=== PATIENT | female | born 1990 ===

== ENCOUNTER 2017-06-07 22:27 | Emergency (ER) | payer BC, OTHER ==
[2017-06-07 22:35] VITALS: RESP 16; TEMP 98.2; O2SAT 100
--- NOTE | 2017-06-07 23:30 | ED PDOC ---
HPI: Female Pain Time Seen by Provider: 06/07/17 23:14 Chief Complaint (Nursing): Female Genitourinary Chief Complaint (Provider): 6 weeks : vaginal bleeding History Per: Patient History/Exam Limitations: no limitations Onset/Duration Of Symptoms: Hrs Current Symptoms Are (Timing): Still Present Quality Of Discomfort: Cramping Additional History Per: Patient Additional Complaint(s): 27 y/o female, approximately 6 weeks gestation, presents with vaginal bleeding x 2 hours. Associated pelvic cramping. Denies fever, nausea/vomiting, chest pain, shortness of breath, changes in bowel movements, urinary symptoms. Abnormal Vaginal Bleeding: Yes : 2 Para: 1 Miscarriage: 0 Past Medical History Reviewed: Historical Data, Nursing Documentation, Vital Signs Vital Signs: Last Vital Signs Temp 98.2 F 06/07/17 22:33 Pulse 84 06/07/17 22:33 Resp 16 06/07/17 22:33 BP 132/69 06/07/17 22:33 Pulse Ox 100 06/07/17 22:33 - Medical History PMH: Hiatal Hernia, Migraine Denies: Chronic Kidney Disease - Surgical History Surgical History: Tonsillectomy, - Family History Family History: States: Unknown Family Hx - Home Medications Home Medications: Ambulatory Orders Medication Instructions Recorded Albuterol Sulfate [Proair Hfa] 2 puff IH Q6H PRN 12/08/15 - Allergies Allergies/Adverse Reactions: Allergies Allergy/AdvReac Type Severity Reaction Status Date / Time No Known Allergies Allergy Verified 06/07/17 22:32 Review of Systems ROS Statement: Except As Marked, All Systems Reviewed And Found Negative Genitourinary Female: Positive for: Vaginal Bleeding, Pelvic Pain Physical Exam - Reviewed Nursing Documentation Reviewed: Yes Vital Signs Reviewed: Yes - Physical Exam Appears: Positive for: Well, Non-toxic, No Acute Distress Head Exam: Positive for: ATRAUMATIC, NORMAL INSPECTION, NORMOCEPHALIC Skin: Positive for: Normal Color Eye Exam: Positive for: Normal appearance ENT: Positive for: Normal ENT Inspection Cardiovascular/Chest: Positive for: Regular Rate, Rhythm Respiratory: Positive for: Normal Breath Sounds Gastrointestinal/Abdominal: Positive for: Bowel Sounds, Soft, Tenderness ( suprapubic, LLQ) Pelvic Exam: Positive for: External Exam Normal, No Cerv. 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 Negative for: Active Bleeding Back: Positive for: Normal Inspection Extremity: Positive for: Normal ROM Neurologic/Psych: Positive for: Alert, Oriented - Laboratory Results Result Diagrams: 06/07/17 23:53 06/07/17 23:53 - ECG O2 Sat by Pulse Oximetry: 100 - Progress ED Course And Treament: labs, urine, OB TV u/s EXAM: US First Trimester, Transabdominal CLINICAL HISTORY: 27 years old, female; Signs and symptoms; Lmp or gestational age (in weeks): Lmp 04/20/2017; Other: Bleeding in preg; ; Additional info: 6 weeks , vaginal bleeding TECHNIQUE: Real-time transabdominal obstetrical ultrasound of the maternal pelvis and a first trimester with image documentation. COMPARISON: No relevant prior studies available. FINDINGS: Gestation: Single live intrauterine gestation. heart rate of 153 beats per minute. Emmett-rump length of 0.9 cm, correlating with gestational age of 6 weeks 6 days. Uterus/cervix: Several uterine masses, largest measuring 5.0 x 4.8 by 4.8 cm. No subchorionic hemorrhage. No cervical dilatation or effacement. Ovaries: Not visualized. No adnexal masses. Free fluid: No significant free fluid. IMPRESSION: 1. Single live intrauterine gestation. 2. Probable fibroid uterus. EXAM: US , Transvaginal CLINICAL HISTORY: 27 years old, female; Signs and symptoms; Lmp or gestational age (in weeks): Lmp 04/20/2017; Other: Bleeding in preg; ; Additional info: 6 weeks , vaginal bleeding TECHNIQUE: Real-time transvaginal obstetrical ultrasound of the maternal pelvis and a first trimester with image documentation. Transvaginal imaging was used for better evaluation of the fetus and adnexa. COMPARISON: No relevant prior studies available. FINDINGS: Gestation: Single live intrauterine gestation. heart rate of 153 beats per minute. Emmett-rump length of 0.9 cm, correlating with gestational age of 6 weeks 6 days. Uterus/cervix: Several uterine masses, largest measuring 5.0 x 4.8 by 4.8 cm. No subchorionic hemorrhage. No cervical dilatation or effacement. Ovaries: Not visualized. No adnexal masses. Free fluid: No significant free fluid. IMPRESSION: 1. Single live intrauterine gestation. 2. Probable fibroid uterus. Case discussed with Dr. 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 Patient educated on findings. Return precautions given. Disposition - Clinical Impression Clinical Impression: Uterine fibroid, Vaginal bleeding in - Patient ED Disposition Is Patient to be Admitted: No Counseled Patient/Family Regarding: Studies Performed, Diagnosis, Need For Followup - Disposition Disposition: Routine/Home Disposition Time: 02:19 Condition: STABLE Instructions: Uterine Fibroids (ED), Threatened Miscarriage (ED)
[2017-06-08 00:11] LABS: BASO % 0.3 % (0.0-2.0); EOS # 0.1 K/uL (0.0-0.7); EOS % 1.1 % (0.0-4.0); HEMATOCRIT 36.5 % (34.0-47.0); LYMPH # 2.1 K/uL (1.0-4.3); LYMPH % 23.1 % (20.0-40.0); MEAN CELL VOLUME 78.7 fl (81.0-99.0); MEAN CORPUSCULAR HEMOGLOBIN 24.8 pg (27.0-31.0); MEAN CORPUSCULAR HGB CONC 31.6 g/dL (33.0-37.0); MEAN PLATELET VOLUME 8.6 fl (7.2-11.7); MONO # 0.8 K/uL (0.0-0.8); MONO % 8.9 % (0.0-10.0); NEUT # 6.2 K/uL (1.8-7.0); NEUT % 66.6 % (50.0-75.0); RED CELL DISTRIBUTION WIDTH 15.8 % (11.5-14.5); WHITE BLOOD COUNT 9.3 K/uL (4.8-10.8)
[2017-06-08 00:13] LABS: ALB/GLOB RATIO 1.2 (1.0-2.1); ALKALINE PHOSPHATASE 68 U/L (38-126); ALT/SGPT 36 U/L (9-52); AST/SGOT 29 U/L (14-36); BILIRUBIN,TOTAL 0.3 mg/dl (0.2-1.3); BLOOD UREA NITROGEN 9 mg/dl (7-17); CALCIUM 8.8 mg/dL (8.4-10.2); CARBON DIOXIDE 25 mmol/L (22-30); CHLORIDE 103 mmol/L (98-107); GFR AFRICAN-AMERICAN > 60; GLUCOSE,RANDOM 89 mg/dL (65-105); SODIUM 138 mmol/l (132-148); TOTAL PROTEIN 7.5 G/DL (6.3-8.2)
[2017-06-08 03:13] VITALS: BP 125/78; PULSE 83
--- NOTE | 2017-06-08 09:27 | US ---
PROCEDURE: OB Pelvic Ultrasound HISTORY: 6 weeks , vaginal bleeding TECHNIQUE: Grayscale, color Doppler and spectral evaluation of the pelvis performed transabdominally and transvaginally. COMPARISON: None available. FINDINGS: UTERUS: Gestational sac: Single intrauterine gestation. Mean sac diameter measures 1.9 centimeter compatible with an estimated gestational age of 6 weeks, 2 days. [place]-rump length: 0.9 centimeter compatible with an estimated gestational age of 6 weeks, 6 days. Yolk sac: 0.6 centimeter. Heart rate: 153 bpm. age (Ultrasound estimated): 6 weeks, 4 days Anastasiia-gestational hemorrhage: None. Date of delivery (Ultrasound estimated) : 01/28/2018 Uterus measures 12.0 x 8.8 x 10.5 cm. Multiple fibroids, largest is in the fundus and measures 4.9 x 4.7 x 4.8 centimeter. CERVIX: Long and closed. No cervical abnormality seen. RIGHT OVARY: Not visualized LEFT OVARY: Not visualized FREE FLUID: None. OTHER FINDINGS: None. IMPRESSION: Single viable intrauterine gestation with estimated gestational age of 6 weeks, 4 days. heart rate 153 beats per minute. Fibroid uterus.
== END 2017-06-08 02:25 | disposition home or self-care (01) ==
LOC: H.ER 22:27
DX: O20.9 Hemorrhage in early pregnancy, unspecified (principal); Z3A.01 Less than 8 weeks gestation of pregnancy; D25.9 Leiomyoma of uterus, unspecified; O34.11 Maternal care for benign tumor of corpus uteri, first trimester

== ENCOUNTER 2017-08-07 19:15 | Emergency (ER) | payer BC, MEDICAID ==
[2017-08-07 19:39] VITALS: BP 110/74; PULSE 87; RESP 18; TEMP 98.2; O2SAT 98
[2017-08-07 21:17] LABS: BASO # 0.1 K/uL (0.0-0.2); BASO % 0.9 % (0.0-2.0); EOS # 0.1 K/uL (0.0-0.7); EOS % 1.3 % (0.0-4.0); HEMOGLOBIN 11.6 g/dL (12.0-16.0); LYMPH # 1.8 K/uL (1.0-4.3); LYMPH % 22.9 % (20.0-40.0); MEAN CELL VOLUME 79.9 fl (81.0-99.0); MEAN CORPUSCULAR HEMOGLOBIN 26.5 pg (27.0-31.0); MEAN CORPUSCULAR HGB CONC 33.2 g/dL (33.0-37.0); MEAN PLATELET VOLUME 8.8 fl (7.2-11.7); MONO # 0.7 K/uL (0.0-0.8); MONO % 9.5 % (0.0-10.0); NEUT # 5.1 K/uL (1.8-7.0); NEUT % 65.4 % (50.0-75.0); RBC 4.36 Mil/uL (3.80-5.20); RED CELL DISTRIBUTION WIDTH 16.5 % (11.5-14.5); WHITE BLOOD COUNT 7.8 K/uL (4.8-10.8)
[2017-08-07 21:28] LABS: SQUAMOUS EPITHIAL < 1 /hpf (0-5); URINE BACTERIA RARE (<OCC); URINE BILIRUBIN NEGATIVE (NEGATIVE); URINE BLOOD SMALL (NEGATIVE); URINE CLARITY CLEAR (Clear); URINE COLOR COLORLESS (YELLOW); URINE GLUCOSE (UA) NEG (Normal); URINE LEUKOCYTE ESTERASE NEG Leu/uL (Negative); URINE NITRATE NEGATIVE (NEGATIVE); URINE PROTEIN NEGATIVE (NEGATIVE); URINE UROBILINOGEN 0.2-1.0 mg/dL (0.2-1.0)
[2017-08-07 21:38] LABS: ALB/GLOB RATIO 1.1 (1.0-2.1); ALBUMIN 3.8 g/dL (3.5-5.0); ALT/SGPT 94 U/L (9-52); AST/SGOT 56 U/L (14-36); BLOOD UREA NITROGEN 5 mg/dl (7-17); GFR AFRICAN-AMERICAN > 60; GFR NON-AFRICAN AMERICAN > 60
[2017-08-07 21:51] LABS: PARTIAL THROMBOPLASTIN TIME 25.8 Seconds (25.6-37.1); PROTHROMBIN TIME 11.5 Seconds (9.8-13.1)
--- NOTE | 2017-08-07 22:18 | US ---
EXAM: US After First Trimester, Transabdominal CLINICAL HISTORY: 27 years old, female; Signs and symptoms; Lmp or gestational age (in weeks): 04/25/17; Antepartum complications; Hemorrhage; ; Additional info: Preg vag bld TECHNIQUE: Real-time transabdominal obstetrical ultrasound of the maternal pelvis and a second or third trimester with image documentation. COMPARISON: No relevant prior studies available. FINDINGS: Fetus: Single live intrauterine gestation. Heart rate: heart rate of 149 beats per minute. Presentation: Breech. Placenta: Posterior fundal. No placenta previa or abruption. Amniotic fluid: Normal. Anatomy: No anomaly is appreciated. BIOMETRICS Gestational age by US: Estimated gestational age of 16 weeks 1 day by measurements. EFW: Estimated weight of 147 g. BPD: 3.4 cm, correlating with 16 weeks 3 days. HC: 11.8 cm, correlating with 15 weeks 6 days. AC: 9.6 cm, correlating with 15 weeks 5 days. FL: 2.2 cm, correlating with 16 weeks 5 days. MATERNAL: Uterus: Two uterine masses, larger measuring 4.8 x 4.6 x 5.0 cm. Cervix: No cervical dilatation or effacement. Adnexa: Ovaries not visualized. No adnexal masses. Free fluid: No significant free fluid. IMPRESSION: 1. Single live intrauterine gestation. 2. Probable fibroid uterus.
--- NOTE | 2017-08-07 23:53 | ED PDOC ---
HPI: Female Pain Time Seen by Provider: 08/07/17 20:28 Chief Complaint (Nursing): Female Genitourinary Chief Complaint (Provider): Female Genitourinary History Per: Patient History/Exam Limitations: no limitations Onset/Duration Of Symptoms: Hrs (x4) Current Symptoms Are (Timing): Still Present Associated Symptoms: denies: Fever, Nausea, Vomiting, Diarrhea Additional Complaint(s): 27 year old female presents to ED with complaints of acute vaginal bleeding x4 hours and is at 15 weeks. Patient's is high-risk due to DVT and possible autoimmune disease and she is currently on Lovenox injections and ASA. Patient notes small clots and pelvic cramps that she describes as similar to menstrual cramps, but stronger. (-) cough, SOB, nausea, vomiting, diarrhea, or fever. Notes onset of bleeding occurred while at rest. Patient states she initially called Dr. Duncan, who advised ED evaluation. PCP: Abnormal Vaginal Bleeding: Yes : 3 Para: 2 Past Medical History Reviewed: Historical Data, Nursing Documentation, Vital Signs Vital Signs: Last Vital Signs Temp 98.2 F 08/07/17 19:36 Pulse 87 08/07/17 19:36 Resp 18 08/07/17 19:36 BP 110/74 08/07/17 19:36 Pulse Ox 98 08/07/17 19:36 - Medical History PMH: Deep Vein Thrombosis, Hiatal Hernia, Migraine Denies: Chronic Kidney Disease - Surgical History Surgical History: Tonsillectomy, - Family History Family History: States: Unknown Family Hx - Living Arrangements Living Arrangements: With Family - Social History Alcohol: None Drugs: Denies - Home Medications Home Medications: Ambulatory Orders Medication Instructions Recorded Albuterol Sulfate [Proair Hfa] 2 puff IH Q6H PRN 12/08/15 - Allergies Allergies/Adverse Reactions: Allergies Allergy/AdvReac Type Severity Reaction Status Date / Time No Known Allergies Allergy Verified 06/07/17 22:32 Review of Systems ROS Statement: Except As Marked, All Systems Reviewed And Found Negative Constitutional: Negative for: Fever Respiratory: Negative for: Cough, Shortness of Breath Gastrointestinal: Negative for: Nausea, Vomiting, Diarrhea Genitourinary Female: Positive for: Vaginal Bleeding, Pelvic Pain (pelvic cramping) Physical Exam - Reviewed Nursing Documentation Reviewed: Yes Vital Signs Reviewed: Yes - Physical Exam Appears: Positive for: Non-toxic, No Acute Distress Skin: Positive for: Normal Color, Warm, Dry Eye Exam: Positive for: Normal appearance Neck: Positive for: Normal, Painless ROM, Supple Cardiovascular/Chest: Positive for: Regular Rate, Rhythm. Negative for: Murmur Respiratory: Positive for: Normal Breath Sounds. Negative for: Respiratory Distress Gastrointestinal/Abdominal: Positive for: Normal Exam, Soft. Negative for: Tenderness Neurologic/Psych: Positive for: Alert, Oriented. Negative for: Motor/Sensory Deficits - Laboratory Results Result Diagrams: 08/07/17 21:10 08/07/17 21:10 - ECG O2 Sat by Pulse Oximetry: 98 (RA) Pulse Ox Interpretation: Normal Medical Decision Making Medical Decision Makin Initial impression: vaginal bleeding in Initial plan: * BETA HCG * Labs * PTT/PT * UA * US OB , LIMITED 2217 US FINDINGS: Fetus: Single live intrauterine gestation. Heart rate: heart rate of 149 beats per minute. Presentation: Breech. Placenta: Posterior fundal. No placenta previa or abruption. Amniotic fluid: Normal. Anatomy: No anomaly is appreciated. BIOMETRICS Gestational age by US: Estimated gestational age of 16 weeks 1 day by measurements. EFW: Estimated weight of 147 g. BPD: 3.4 cm, correlating with 16 weeks 3 days. HC: 11.8 cm, correlating with 15 weeks 6 days. AC: 9.6 cm, correlating with 15 weeks 5 days. FL: 2.2 cm, correlating with 16 weeks 5 days. MATERNAL: Uterus: Two uterine masses, larger measuring 4.8 x 4.6 x 5.0 cm. Cervix: No cervical dilatation or effacement. Adnexa: Ovaries not visualized. No adnexal masses. Free fluid: No significant free fluid. IMPRESSION: 1. Single live intrauterine gestation. 2. Probable fibroid uterus. Thank you for allowing us to participate in the care of your patient Labs reviewed: no clinically significant abnormalities. [id number] Duncan, who agrees with discharge plan and will see patient as follow up. Patient is stable for discharge home. Return precautions given. Scribe Attestation: Documented by Mayte Murphy acting as a scribe for Aman Chacko DO. DO Scribe Attestation: All medical record entries made by the Scribe were at my direction and personally dictated by me. I have reviewed the chart and agree that the record accurately reflects my personal performance of the history, physical exam, medical decision making, and the department course for this patient. I have also personally directed, reviewed, and agree with the discharge instructions and disposition. Disposition - Clinical Impression Clinical Impression: Vaginal bleeding in Discussed With : Krishna Duncan Doctor Will See Patient In The: Office Counseled Patient/Family Regarding: Studies Performed, Need For Followup - Disposition Disposition: Routine/Home Disposition Time: 23:33 Condition: STABLE Additional Instructions: Follow up with Dr Duncan in 1-2 days Instructions: Bleeding With Forms: [facility] (Indonesian)
== END 2017-08-08 00:20 | disposition home or self-care (01) ==
LOC: H.ER 19:15
DX: O20.9 Hemorrhage in early pregnancy, unspecified (principal); Z3A.11 11 weeks gestation of pregnancy

== ENCOUNTER 2017-09-22 09:42 | Emergency (ER) | payer BC, MEDICAID ==
[2017-09-22 09:49] VITALS: RESP 21; TEMP 98.3
--- NOTE | 2017-09-22 12:03 | ED PDOC ---
HPI: Back Time Seen by Provider: 09/22/17 10:15 Chief Complaint (Nursing): Lower Extremity Problem/Injury Chief Complaint (Provider): Back Pain History Per: Patient History/Exam Limitations: no limitations Onset/Duration Of Symptoms: Days (x1) Current Symptoms Are (Timing): Still Present Quality Of Discomfort: "Pain" Associated Symptoms: None Additional Complaint(s): Oneida Lunsford is a 27 year old female, with a past medical history of partial focal seizures, elevated NIXON (possible connective tissue disorder/concern for lupus), who presents to the emergency department complaining of right lower back pain, onset since last night. Patient reports this morning at 6:45am she went to get out of bed and felt the pain radiate down into her right leg, causing her leg to buckle out on her. Patient states she fell but was able to brace herself. Her OB-ICT DEVELOPMENT MANAGER sent her for evaluation. She took no medication prior to arrival, she is currently taking Lovenox daily through her due to high risk for blood clots. She denies LOC, head injury, nausea, vomit, diarrhea , abdominal pain, vaginal bleeding, saddle anesthesia, incontinence, weakness or numbness. Her is at bedside and patient is acting normal. No further medical complaints. Of note: patient is 22 weeks . LMP: 04/20/17. 2nd . First was full term, OB-ICT DEVELOPMENT MANAGER: Dr. Duncan PMD: Dr. Baker Past Medical History Reviewed: Historical Data, Nursing Documentation, Vital Signs Vital Signs: Last Vital Signs Temp 98.3 F 09/22/17 09:48 Pulse 98 H 09/22/17 09:48 Resp 21 09/22/17 09:48 BP 104/68 09/22/17 09:48 Pulse Ox 99 09/22/17 09:48 - Medical History PMH: Hiatal Hernia, Migraine, Seizures (partial focal) Denies: Chronic Kidney Disease Other PMH: Elevated NIXON levels(possible connective tissue disorder concerned for lupus - Surgical History Surgical History: Tonsillectomy, - Family History Family History: States: Unknown Family Hx - Home Medications Home Medications: Ambulatory Orders Medication Instructions Recorded Albuterol Sulfate [Proair Hfa] 2 puff IH Q6H PRN 12/08/15 - Allergies Allergies/Adverse Reactions: Allergies Allergy/AdvReac Type Severity Reaction Status Date / Time No Known Allergies Allergy Verified 09/22/17 09:53 Review of Systems ROS Statement: Except As Marked, All Systems Reviewed And Found Negative Constitutional: Negative for: Other (head injury) Gastrointestinal: Negative for: Nausea, Vomiting, Abdominal Pain, Diarrhea Genitourinary Female: Negative for: Incontinence, Vaginal Bleeding Musculoskeletal: Positive for: Back Pain (right lower back pain that radiates down her right leg), Leg Pain (right leg) Neurological: Negative for: Weakness, Numbness Physical Exam - Reviewed Nursing Documentation Reviewed: Yes Vital Signs Reviewed: Yes - Physical Exam Comments: GENERAL APPEARANCE: Patient is awake, alert, oriented x 3, in no acute distress. Resting comfortably. SKIN: Warm, dry; (-) cyanosis. EYES: (-) conjunctival pallor. ENMT: Mucous membranes moist. NECK: Supple, FROM (-) tenderness, (-) stiffness CHEST AND RESPIRATORY: (-) rales, (-) rhonchi, (-) wheezes; breath sounds equal bilaterally. HEART AND CARDIOVASCULAR: (-) irregularity; (-) murmur, (-) gallop ABDOMEN AND GI: Soft; (-) tenderness; (-) palpable mass (-) Distention, (-) Guarding (+) gravid BACK: (+) right sided paralumbar tenderness, (+) mild spasm, (-) direct bony tenderness, (-) deformity.(+) Right sciatic notch tenderness. (-) CVA tenderness EXTREMITIES: (-) deformity. Distal pulses good bilaterally. (+) Lower extremity strength symmetrical. Full ROM of b/l lower extremity with pain on flexion of the right hip. (-)calf tenderness, (-) pedal edema NEURO AND PSYCH: Mental status as above. Intact sensation bilaterally; normal strength in extension of the knees, plantar and dorsiflexion of the toes. Ambulatory in the ED with steady gait. - ECG O2 Sat by Pulse Oximetry: 99 (RA) Pulse Ox Interpretation: Normal Medical Decision Making Medical Decision Making: Initial Impression: Acute back pain, radicular pain. Secondary trimester of Initial Plan: --Tylenol 325mg tab 650 mg PO --Reevaluation 10:30 -Spoke with Dr. Duncan. He states no further intervention is needed in the ED, she can be sent to labor and delivery for monitoring. 11:10 On re-evaluation, patient reports improvement of symptoms, denies any related complaints including abdominal pain, vaginal bleeding. On exam, patient remains AAOx3, in no acute distress. Lungs clear to auscultation, cardiac RRR, abdomen soft, non-tender, repeat neuro exam shows no focal findings. Diagnostic results d/w the patient in great detail. Diagnosis of acute back pain affecting , radicular pain of lower extremity d/w the patient. Based on history, exam and diagnostic results, plan will be for discharge and further evaluation on L&D floor. Patient instructed to follow-up with pmd / referral provided / the clinic in 1- 2 days without fail. Advised to take Tylenol as needed. Return to the emergency room at any time for any new or worsening symptoms. Patient states she fully agrees with and understands discharge instructions. States that she agrees with the plan and disposition. Verbalized and repeated discharge instructions and plan. I have given the patient opportunity to ask any additional questions. Scribe Attestation: Documented by Brennon Mauricio, acting as a scribe for Liza Ring PA-C Provider Scribe Attestation: All medical record entries made by the Scribe were at my direction and personally dictated by me. I have reviewed the chart and agree that the record accurately reflects my personal performance of the history, physical exam, medical decision making, and the department course for this patient. I have also personally directed, reviewed, and agree with the discharge instructions and disposition. Disposition - Clinical Impression Clinical Impression: Acute back pain, Radicular pain of lower extremity, Back pain affecting in second trimester, Sciatica - Patient ED Disposition Is Patient to be Admitted: No Counseled Patient/Family Regarding: Diagnosis, Need For Followup - Disposition Referrals: Krishna Duncan MD [Staff Provider] - Danette Baker MD [Medical Doctor] - Disposition: Routine/Home (after evaluated by L&D floor) Disposition Time: 11:15 Condition: STABLE Additional Instructions: TAKE TYLENOL NEEDED FOR PAIN. RETURN TO ED WITH ANY NEW OR WORSENING SYMPTOMS. Instructions: Sciatica, Low Back Pain in Adults, Radiculopathy, Sciatica Exercises, - The Sixth Month, - The Seventh Month Forms: [employer] (Luxembourgish) Print Language: POLISH - POA Present On Arrival: Falls Or Trauma
[2017-09-22 20:56] VITALS: BP 103/65; PULSE 86; O2SAT 100
== END 2017-09-22 15:35 | disposition home or self-care (01) ==
LOC: H.EROB2 09:42 → H.ER 11:31 → H.EROB2 15:35
DX: O26.92 Pregnancy related conditions, unspecified, second trimester (principal); M54.5 Low back pain; M54.16 Radiculopathy, lumbar region; Z3A.22 22 weeks gestation of pregnancy

== ENCOUNTER 2017-10-05 17:51 | Emergency (ER) | payer BC, MEDICAID ==
[2017-10-05 19:27] VITALS: BMI 34.3
[2017-10-05] MEDS: Lactated Ringer's 1,000 ML IV SCH ×2 (19:30→20:40)
--- NOTE | 2017-10-05 20:17 | OBHP ---
Datetime: 10/05/2017 20:12 IP Adm Impression: , intrauterine ; No Active Labor; Intact Membranes IP Admit Plan: Observation/Evaluation; Discharge home Admit Comment, IP Provider: The patient is a 26-year-old 2 para 1 estimated due date January 20 estimated gestational age 24 weeks patient presents to labor and delivery complaining of pelvic pre ssure and cramps she denies leakage of fluid she reports good movement. Patient's care unremarkable Past medical history positive and rhoda, seizure disorder Medications Focalin L and Lamictal No known drug allergies Social history denies alcohol tobacco use Obstetrical history previous operative delivery Review of systems patient denies headache chest pain shortness of breath palpitations nausea vomit ing diarrhea heat or cold intolerance she is bruisability musculoskeletal or neurological complaints Vital signs stable afebrile Physical exam see notes Intrauterine at 24 weeks Plan of care discussed with PMD PMDD requests fibronectin IV fluid hydration urinalysis Observation external monitor Pelvic Type - PN: Adequate Extremities - PN: Normal Abdomen - PN: Normal Back - PN: Not Done Breast - PN: Not Done Lungs - PN: Normal Heart - PN: Normal Thyroid - PN: Normal Neurologic - PN: Normal HEENT - PN: Normal General - PN: Normal FHR - Baseline A Provider: 145 Gestation - Est Wks by US: 24.0 EGA AdmitDate IP: 24.5 Vital Signs Provider: Reviewed IP Chief Complaint: Maternal discomfort Dilatation, Provider: 0 Genitourinary Exam: Normal DTRs - PN: Normal
[2017-10-05 20:50] LABS: SQUAMOUS EPITHIAL 2 /hpf (0-5); URINE BACTERIA RARE (<OCC); URINE BILIRUBIN NEGATIVE (NEGATIVE); URINE BLOOD NEGATIVE (NEGATIVE); URINE CLARITY SLIGHTY-CLOUDY (Clear); URINE COLOR STRAW (YELLOW); URINE GLUCOSE (UA) NEG (Normal); URINE LEUKOCYTE ESTERASE TRACE Leu/uL (Negative); URINE PROTEIN NEGATIVE (NEGATIVE); URINE UROBILINOGEN 0.2-1.0 mg/dL (0.2-1.0)
[2017-10-05 21:51] LABS: SPECIMEN COMMENT SL. CLOUDY
[2017-10-06 02:21] VITALS: BP 103/59; PULSE 90; RESP 18; TEMP 98; O2SAT 99
== END 2017-10-05 22:10 | disposition home or self-care (01) ==
LOC: H.EROB2 17:51
DX: O26.92 Pregnancy related conditions, unspecified, second trimester (principal); R10.2 Pelvic and perineal pain; Z3A.24 24 weeks gestation of pregnancy
CPT/HCPCS: 81003; 82731; 96360; 99283; J7120

== ENCOUNTER 2017-11-03 17:11 | Emergency (ER) | payer BC, MEDICAID ==
[2017-11-03 18:34] VITALS: BMI 36.9
[2017-11-03 19:18] LABS: SQUAMOUS EPITHIAL 4 /hpf (0-5); URINE BACTERIA RARE (<OCC); URINE BILIRUBIN NEGATIVE (NEGATIVE); URINE BLOOD SMALL (NEGATIVE); URINE CLARITY SLIGHTY-CLOUDY (Clear); URINE COLOR YELLOW (YELLOW); URINE GLUCOSE (UA) NEG (Normal); URINE LEUKOCYTE ESTERASE TRACE Leu/uL (Negative); URINE PROTEIN NEGATIVE (NEGATIVE); URINE UROBILINOGEN 0.2-1.0 mg/dL (0.2-1.0)
[2017-11-03 20:03] LABS: SPECIMEN COMMENT SL.CLOUDY
--- NOTE | 2017-11-03 21:04 | US ---
EXAM: US Uterus, Limited EXAM DATE/TIME: 11/03/2017 6:42 PM CLINICAL HISTORY: 27 years old, female; Pain; Other: Contraction; LMP 04/26/17: 27 weeks 2 days by dates wks; ; Additional info: Contractions TECHNIQUE: Real-time transvaginal imaging of the uterine cervix (limited) with image documentation. COMPARISON: There are no prior studies for comparison. FINDINGS: Cervix: Cervix is closed. The cervix measures approximately 5 cm in length. IMPRESSION: 5 cm closed cervix
[2017-11-04 01:07] VITALS: BP 113/72; PULSE 92; O2SAT 100
== END 2017-11-03 20:20 | disposition home or self-care (01) ==
LOC: H.EROB2 17:11
DX: O26.93 Pregnancy related conditions, unspecified, third trimester (principal); R10.2 Pelvic and perineal pain; Z3A.29 29 weeks gestation of pregnancy

== ENCOUNTER 2017-12-22 15:02 | Inpatient (IN) | payer BC, MEDICAID ==
[2017-12-22 15:49] VITALS: BMI 35.3
[2017-12-22] MEDS ORDERED: Lactated Ringer's 1,000 ML IV SCH (16:15)
--- NOTE | 2017-12-22 16:21 | OBHP ---
Datetime: 12/04/2017 12:10 IP Adm Impression: , intrauterine ; No Active Labor IP Admit Plan: Observation/Evaluation; Discharge home Admit Comment, IP Provider: 27-year-old at 29 weeks gestational age presents to OB ED complain ing of contractions. Patient denies any vaginal bleeding or leakage of fluids. Patient reports good f etal movement. Otherwise, patient without complaints Past medical history none Past surgical history none Medications vitamins No known drug allergies Social history no tobacco, no drugs, no alcohol Assessment: 29 weeks gestational age, normal cervical exam, negative FFN, no evidence of labor at this time. Both maternal well-being and well-being reassuring at this time. Plan: Discharge home with labor precautions if cleared by primary M.D. Pelvic Type - PN: Adequate Extremities - PN: Normal Abdomen - PN: Normal Back - PN: Normal Breast - PN: Normal Lungs - PN: Normal Heart - PN: Normal Thyroid - PN: Normal Neurologic - PN: Normal HEENT - PN: Normal General - PN: Normal FHR - Baseline A Provider: 140s-150s Membranes, Provider: Intact Contraction Comments Provider: none, occasional irritability Comments, ACOG Physical Exam: Cervix long, closed, posterior FFN negative Pool Provider: Negative EGA AdmitDate IP: 33.2 Vital Signs Provider: Reviewed; Within Normal Limits IP Chief Complaint: Uterine contractions NICHD Variability Prov Fetus A: Moderate 6-25bpm NICHD Accel Fetus A IP Provider: [id number] FHR Category Provider Fetus A: Category I NICHD Decel Fetus A IP Provider: None Dilatation, Provider: 0 Effacement, Provider: 0 Station, Provider: -4 Genitourinary Exam: Normal DTRs - PN: Normal
[2017-12-22 16:37] LABS: HEMOGLOBIN 11.1 g/dL (12.0-16.0); MEAN CELL VOLUME 79.1 fl (81.0-99.0); MEAN CORPUSCULAR HEMOGLOBIN 25.9 pg (27.0-31.0); MEAN CORPUSCULAR HGB CONC 32.8 g/dL (33.0-37.0); RBC 4.26 Mil/uL (3.80-5.20); RED CELL DISTRIBUTION WIDTH 18.8 % (11.5-14.5); WHITE BLOOD COUNT 10.4 K/uL (4.8-10.8)
[2017-12-22 16:52] LABS: PARTIAL THROMBOPLASTIN TIME 25.3 Seconds (25.6-37.1); PROTHROMBIN TIME 11.3 Seconds (9.8-13.1)
--- NOTE | 2017-12-22 17:15 | OBADHP ---
Datetime: 12/22/2017 17:01 IP Chief Complaint Other: prev C/s; conective tissue disorder IP Adm Impression Other: UC; prev C/s Conective tissure sorder maternal disconfort IP Admit Plan Other: IV hydration and sterioids Admit Comment, IP Provider: had stopped the plaquenil and Lovenox since yesterday, pt states crying with pains Discussed with perinatologist who suggest to admit and give steroids and for delivery Disc ussed with pt who understands and agreed. Start hydration and steroids Extremities - PN: Normal Abdomen - PN: Abnormal Breast - PN: Normal Lungs - PN: Normal Heart - PN: Normal Thyroid - PN: Normal HEENT - PN: Normal General - PN: Normal FHR - Baseline A Provider: 150 Membranes, Provider: Intact Contraction Comments Provider: q 5-12 min Comments, ACOG Physical Exam: abd gravid NT, fundus at 35 cm above sp, SVE as above, Ext no calf ten derness Gestation - Est Wks by US: 35w 1d IP Hx Assessment: The History has been Reviewed and is Current IP Chief Complaint: Uterine contractions; Other NICHD Variability Prov Fetus A: Moderate 6-25bpm NICHD Accel Fetus A IP Provider: 10X10 Dilatation, Provider: ft Effacement, Provider: soft Genitourinary Exam: Normal DTRs - PN: Normal EGA AdmitDate IP: 35.6 IP Adm Impression: , intrauterine IP Admit Plan: Admit to unit Datetime: 12/04/2017 12:10 Pelvic Type - PN: Adequate Back - PN: Normal Neurologic - PN: Normal Pool Provider: Negative Vital Signs Provider: Reviewed; Within Normal Limits FHR Category Provider Fetus A: Category I NICHD Decel Fetus A IP Provider: None Station, Provider: -4
[2017-12-22 17:32] LABS: SQUAMOUS EPITHIAL 11 /hpf (0-5); URINE BILIRUBIN NEGATIVE (NEGATIVE); URINE BLOOD NEGATIVE (NEGATIVE); URINE CALCIUM OXALATE CRYSTALS MOD /hpf (<OCC); URINE CLARITY CLOUDY (Clear); URINE COLOR YELLOW (YELLOW); URINE GLUCOSE (UA) NEG (Normal); URINE LEUKOCYTE ESTERASE MOD Leu/uL (Negative); URINE PROTEIN NEGATIVE (NEGATIVE)
[2017-12-22] MEDS ORDERED: Betamethasone Soluspan 30 mg/5mL Inj Susp IM SCH (21:00)
[2017-12-23] MEDS ORDERED: Oxytocin 30 units/LR 500ML 30 U/500 ML BAG IV ONE (00:38)
[2017-12-23] MEDS ORDERED: cefOXitin 2 GM in Sodium Chloride 0.9% 100 ML IVPB ONE (00:39)
[2017-12-23] MEDS ORDERED: Phenylephrine 10 mg/ml Inj ONE (01:08)
[2017-12-23] MEDS ORDERED: Morphine 1 mg/ml preservative-free Inj(Duramorph) ONE (01:08)
[2017-12-23] MEDS ORDERED: ePHEDrine 50 mg/ml Inj ONE (01:08)
[2017-12-23] MEDS ORDERED: DiphenhydrAMINE 50 mg/ml Inj IVP PRN (01:17)
--- NOTE | 2017-12-23 03:01 | OBDS ---
DELIVERY PERSONNEL Delivery Doctor: Nicholas Duncan MD Scrub Nurse: Alycia Arana OBT Fishing Rod Assembler: Carla Leon RN Anesthesiologist: Juan Pugh MD MATERNAL INFORMATION Delivery Anesthesia: Spinal Estimated Blood Loss (ml): 800 Placenta Cultured: Yes Maternal Complications: Other Other Maternal Complications: Seizure Disorder/conective tissue disorder/ non-reasusing tracin g Provider Comments: see dictated surgeons note LABOR SUMMARY EDC: 01/25/2018 00:00 No. Babies in Womb: 1 Attempted: No Labor Anesthesia: None LABOR INFORMATION Reason for Induction: Not Applicable Onset of Labor: 12/22/2017 23:00 Oxytocin: N/A Group B Beta Strep: Not Done Steroids Given: Partial Course Reason Steroids Not Administered: Not Applicable MEMBRANES Membranes Rupture Method: Artificial Rupture of Membranes: 12/23/2017 01:50 Length of Rupture (hrs): 0.03 Amniotic Fluid Color: Clear Amniotic Fluid Amount: Moderate Amniotic Fluid Odor: Normal STAGES OF LABOR Stage 3 hrs: 0 Stage 3 min: 1 Total Time in Labor hrs: 2 Total Time in Labor min: 53 VAGINAL DELIVERY Sponge Count Correct: Yes Sharps Count Correct: Yes Count Comment: count correct x3 CSECTION DELIVERY Primary Indication: Nonreassuring Status Other Primary Indication: conective tissue disorder Secondary Indication: prev C/S in early labor Other Secondary Indication: Previous C/S, Early Labor, Seizure Disorder CSection Urgency: Non Elective CSection Incidence: Repeat Labor: Labor Elective: N/A CSection Incision: Lower Uterine Transverse Sterilization Procedure: Ez BABY A INFORMATION Delivery Date/Time: 12/23/2017 01:52 Method of Delivery: Born in Route : No : N/A Forceps: N/A Vacuum Extraction: N/A Shoulder Dystocia : No SHOULDER DYSTOCIA BABY A Delivery Date/Time: 12/23/2017 01:52 PRESENTATION/POSITION BABY A Presentation: Cephalic Cephalic Presentation: Vertex Breech Presentation: N/A PLACENTA INFORMATION BABY A Placenta Delivery Time : 12/23/2017 01:53 Placenta Method of Delivery: Manual Removal Placenta Status: Delivered SCORES BABY A Heart Rate 1 min: >100 bpm Resp Effort 1 min: Good Cry Reflex Irritability 1 min: Cough or Sneeze or Pulls Away Muscle Tone 1 min: Active Motion Color 1 min: Body [place], Extremities Blue Resuscitation Effort 1 min: Tactile Stimulation; Oxygen SCORE 1 MIN: 9 Heart Rate 5 min: >100 bpm Resp Effort 5 min: Good Cry Reflex Irritability 5 min: Cough or Sneeze or Pulls Away Muscle Tone 5 min: Active Motion Color 5 min: Body [place], Extremities Blue Resuscitation Effort 5 min: Tactile Stimulation; Oxygen; PPV/NCPAP SCORE 5 MIN: 9 INFANT INFORMATION BABY A Gestational Age at Delivery: 35.2 Gestational Status: Infant Outcome : Liveborn Infant Condition : Stable Sex: Female IDENTIFICATION/MEDS BABY A ID Band Number: [id number] ID Band Location: Left Leg; Left Arm WEIGHT/LENGTH BABY A Infant Birthweight (gms): 3000 Infant Weight (lb): 6 Weight (oz): 10 CORD INFORMATION BABY A No. Cord Vessels: 3 Nuchal Cord : N/A Cord Blood Taken: Yes Infant Suction: Mouth; Nose ASSESSMENT BABY A Complications: Other Infant Complications Other: NRFHT Physical Findings at Delivery: Within Normal Limits Infant Respirations: Appears Normal Advertising Assistant Manager/ALS Called : No Care By: Dr. Bray Transferred To: [facility]
[2017-12-23] MEDS ORDERED: Oxycodone/Acetaminophen 5/325 mg Tab PO PRN ×2 (03:02→03:36)
[2017-12-23] MEDS ORDERED: Multivitamin With Minerals Tab PO SCH (09:00)
[2017-12-23] MEDS ORDERED: cefOXitin IV 1 gm in Dextrose 1 GM/50 ML BAG IVPB SCH (09:00)
[2017-12-23] MEDS: Multivitamin With Minerals Tab PO SCH (09:19)
[2017-12-23] MEDS: cefOXitin IV 1 gm in Dextrose 1 GM/50 ML BAG IVPB SCH ×2 (09:21→16:17)
[2017-12-23] MEDS: DiphenhydrAMINE 50 mg/ml Inj IVP PRN ×2 (09:22→22:22)
[2017-12-23] MEDS: Lactated Ringer's 1,000 ML IV SCH ×2 (12:16→12:17)
[2017-12-24] MEDS: cefOXitin IV 1 gm in Dextrose 1 GM/50 ML BAG IVPB SCH (01:25)
[2017-12-24 06:14] LABS: BASO % 0.1 % (0.0-2.0); EOS % 0.1 % (0.0-4.0); LYMPH # 1.8 K/uL (1.0-4.3); LYMPH % 11.1 % (20.0-40.0); MEAN CELL VOLUME 80.3 fl (81.0-99.0); MEAN CORPUSCULAR HEMOGLOBIN 26.6 pg (27.0-31.0); MEAN CORPUSCULAR HGB CONC 33.1 g/dL (33.0-37.0); MEAN PLATELET VOLUME 9.2 fl (7.2-11.7); MONO # 1.2 K/uL (0.0-0.8); MONO % 7.5 % (0.0-10.0); NEUT # 13.2 K/uL (1.8-7.0); NEUT % 81.2 % (50.0-75.0); NRBC % 0.1 % (0.0-0.0); RBC 3.77 Mil/uL (3.80-5.20); RED CELL DISTRIBUTION WIDTH 18.5 % (11.5-14.5)
[2017-12-24 06:21] LABS: WHITE BLOOD COUNT 16.3 K/uL (4.8-10.8)
[2017-12-24] MEDS: Multivitamin With Minerals Tab PO SCH (08:54)
--- NOTE | 2017-12-24 11:53 | OBPPN ---
Datetime: 12/24/2017 11:45 PP Pain Prov: Within normal limits PP Nausea Prov: Denies PP Flatus Prov: Yes PP BM Prov: No PP Breasts Prov: Normal PP Heart Prov: Normal PP Lungs Prov: Normal PP Abdomen/Uterus Prov: Normal PP Lochia Prov: Normal PP Vulva/Perineum Prov: Normal PP CVA Tenderness Prov: Normal PP Extremities Prov: Normal PP C/S Incision Prov: Normal PP Impression Prov: Normal progression PP Plan Prov: Continue present management PP Progress Note Prov: stable pod1 continue present care incision healing well and clean h/h 10.0/30 .2 [id number] IP PP Procedures: None
--- NOTE | 2017-12-24 21:11 | OP ---
PROCEDURE DATE: 12/23/2017 PREOPERATIVE DIAGNOSES: 1. at 35-plus weeks' gestation. 2. Previous section, in early labor. 3. Non-reassuring tracing. 4. History of seizure disorders. 5. History of connective tissue disorder. 6. Multiparity and voluntary sterilization. POSTOPERATIVE DIAGNOSES: 1. at 35-plus weeks' gestation. 2. Previous section, in early labor. 3. Non-reassuring tracing. 4. History of seizure disorders. 5. History of connective tissue disorder. 6. Multiparity and voluntary sterilization. 7. Fibroid uterus. PROCEDURES PERFORMED: 1. Repeat low transverse segment section. 2. Bilateral tubal sterilization using a modified Nash procedure. SURGEON: Krishna Duncan MD SPRING TIER: Main Montilla DO. Dr. Montilla was present for the entire duration of the case. Addiction Specialist was needed in providing exposure in opening of the abdomen, assistance in delivering the baby and closure of the abdomen. ANESTHESIA USED: Spinal. ANESTHESIOLOGIST: Walter Pugh MD ESTIMATED BLOOD LOSS: 800 mL. DRAINS USED: None. REPLACEMENTS USED: None. FINDINGS: 1. Delivered a living baby girl. Baby appears adequate for gestational age. Baby cries spontaneously. Warp Knitting Machine Operator in attendance. score of 9 and 9. 2. Amniotic fluid clear. 3. Placenta delivered complete and intact. 4. Both tubes and ovaries appear grossly within normal limits to inspection bilaterally. 5. Bilateral tubal sterilization performed using a modified Ez procedure. 6. Multiple fibroids on the anterior and left frontal aspect of the uterus and low transverse segment of the uterus. PROCEDURE: The patient was taken to the operating room and placed on the operating table in the supine position. Following induction of spinal anesthesia, the patient was then replaced in a supine position, and a Rouse catheter was then inserted into the bladder and was draining clear fluid. At this time, Venodyne boots were applied to both legs. Anesthesia tested and found to be well secured, and the abdomen was draped and prepped in a usual sterile manner. Again, anesthesia tested and found to be well secured, and a Pfannenstiel incision was then made using sharp dissection along the edges of the previous incision. The incision was then extended down to subcutaneous tissue using sharp dissection. At this time, electrocoagulation used in order to provide hemostasis. The fascia was then identified and was then entered in the midline incision, and the fascia was then extended laterally on its direction. Following this, the rectus muscle was then identified, was then split at the midline, exposing the peritoneum. Peritoneal layer was then picked up using 2 [place] clamps, reflected superiorly and then entered using sharp dissection. Incision on the peritoneum was then extended superiorly and inferiorly under direct visualization. Following this, we then proceeded to identify the bladder which was then retracted inferiorly using a [place] retractor. A low transverse segment of the uterus was then identified, and the vesicouterine peritoneum covering this area was then entered using sharp dissection. Using blunt dissection, a bladder flap was then created and retracted inferiorly using the same [place] retractor. Following this, we then proceeded to make an incision on the low transverse segment of the uterus, and upon entering the uterine cavity, clear fluid noted to be present. At this time, the incision was then extended laterally in its direction using bandage scissors. Using amnioscopy procedure, living baby girl was then delivered. The baby appeared adequate for gestational age. The baby was immediately aspirated using the bulb suction. The baby cried continuously. The umbilicus was then doubly clamped and cut, and the baby handed to the pediatric personnel who was standing by. Samples of cord blood were then obtained, and the placenta was then delivered complete and intact. The uterus was then exteriorized to provide better visualization. Uterine cavity was then thoroughly cleaned using moist lap pads. The uterus massaged and contracted well. At this time, multiple fibroids present, the largest one about 3 to 4 cm in diameter on the anterior and left fundal aspect of the uterus and a smaller fibroid on the low transverse segment of the uterus anteriorly. At this time, the incision was then approximated using 0 Vicryl suture in a continuous interlocking manner. A second layer was also applied using 0 Vicryl suture in a continuous manner. Hemostasis checked and found to be well secured. The bladder flap was then approximated using a 2-0 Rapide in a continuous manner. Again, hemostasis checked and found to be well secured. Both tubes and ovaries appeared grossly within normal limits to inspection bilaterally. Free amniotic fluid and blood were evacuated from the pelvic cavity. The pelvic cavity was irrigated using saline solution. The patient again was verbally consented for tubal ligation since she had requested this, and after obtaining verbal consent, the right fallopian tube was followed to its fimbriate end and grasped at the ampullary region using a [place] clamp and retracted superiorly. A 2-0 chromic was then passed to the mesosalpinx, and the section of the tube was then ligated. A free 2-0 chromic tie was then placed underneath the ligature, and the ligated segment of the tube was then resected and sent to Pathology for proper pathological evaluation. The same procedure was then performed on the contralateral side without any complications. Following bilateral tubal sterilization, all operative areas checked and hemostatically secured. We then proceeded to replace back the uterus in its original position. Again, all operative areas checked, hemostatically secure, and the peritoneum was then closed using 0 Vicryl suture in a continuous manner. At this time, the rectus muscle was also approximated in the midline using 0 Vicryl suture in a continuous manner. Fascia was then identified, was then approximated using 1 Vicryl suture in a continuous manner. Fascia was then checked and found to be free of defect. Subcutaneous tissue was then irrigated using saline solution and approximated using several interrupted 2-0 plain sutures. The skin was then approximated using a 3-0 Prolene in a subcuticular fashion. Steri-Strips were then applied. Clear fluid noted to be present in the Rouse bag at this time, and sponge, instrument, and needle count correct x3. The patient tolerated the procedure well. There were no complications. She was transferred to the recovery room in satisfactory condition. Krishna Duncan MD
[2017-12-24 22:17] VITALS: BP 127/75; PULSE 95; RESP 20; TEMP 98.1; O2SAT 100
== END 2017-12-24 18:00 | disposition home or self-care (01) | DRG 765 ==
LOC: H.EROB2 15:02 → H.L&D 17:19 → H.OB/GYN 12-23 05:30
PROVIDERS: ADMIT Specialist; ATTEND Specialist
PROC: 4A1HXCZ Monitoring of Products of Conception, Cardiac Rate, External Approach (ICD-10-PCS; 2017-12-22)
PROC: 10D00Z1 Extraction of Products of Conception, Low, Open Approach (ICD-10-PCS; principal; 2017-12-23)
PROC: 0U570ZZ Destruction of Bilateral Fallopian Tubes, Open Approach (ICD-10-PCS; 2017-12-23)
DX: O60.14X0 Preterm labor third trimester with preterm delivery third trimester, not applicable or unspecified (principal); O99.354 Diseases of the nervous system complicating childbirth; O34.211 Maternal care for low transverse scar from previous cesarean delivery; O34.13 Maternal care for benign tumor of corpus uteri, third trimester; O76 Abnormality in fetal heart rate and rhythm complicating labor and delivery; Z3A.35 35 weeks gestation of pregnancy; Z37.0 Single live birth; D25.9 Leiomyoma of uterus, unspecified; G40.909 Epilepsy, unspecified, not intractable, without status epilepticus; Z30.2 Encounter for sterilization